=== PATIENT | male | born 1975 | race Caucasian/White ===

== ENCOUNTER 2018-09-02 13:46 | Emergency (ER) | payer MEDICAID ==
[~2018-09-02] VITALS: Ht 182.9 cm; Wt 87.0 kg
[2018-09-02 13:54] VITALS: BP 135/85
== END 2018-09-02 14:03 | disposition home or self-care (01) ==
LOC: ER 13:47
DX: Z02.89 Encounter for other administrative examinations (principal)
CPT/HCPCS: 99281

== ENCOUNTER 2018-10-04 06:16 | Emergency (ER) | payer MEDICAID ==
[~2018-10-04] VITALS: Ht 182.9 cm; Wt 86.4 kg
[2018-10-04 06:25] VITALS: BP 139/92
[2018-10-04] MEDS ORDERED: clindamycin 150mg capsule PO STA (08:59)
[2018-10-04] MEDS ORDERED: CLIN150C2 PO (09:42)
== END 2018-10-04 10:30 | disposition home or self-care (01) ==
LOC: ER 06:17
DX: S00.211A Abrasion of right eyelid and periocular area, initial encounter (principal); L03.211 Cellulitis of face; Y04.2XXA Assault by strike against or bumped into by another person, initial encounter; Y93.89 Activity, other specified; Y92.89 Other specified places as the place of occurrence of the external cause; Y99.8 Other external cause status
CPT/HCPCS: 70140; 99283

== ENCOUNTER 2018-10-14 14:06 | Emergency (ER) | payer MEDICAID ==
[~2018-10-14] VITALS: Ht 182.9 cm; Wt 84.5 kg
[~2018-10-14 14:06] MED LIST: CLIN150C2 PO
[2018-10-14 14:09] VITALS: BP 163/91
[2018-10-14] MEDS ORDERED: ACET-3068 PO (16:16)
== END 2018-10-14 16:32 | disposition home or self-care (01) ==
LOC: ER 14:07
DX: S62.342A Nondisplaced fracture of base of third metacarpal bone, right hand, initial encounter for closed fracture (principal); Z46.89 Encounter for fitting and adjustment of other specified devices; Z76.0 Encounter for issue of repeat prescription; F17.200 Nicotine dependence, unspecified, uncomplicated; Z59.0 Homelessness; V19.88XA Pedal cyclist (driver) (passenger) injured in other specified transport accidents, initial encounter; Y93.55 Activity, bike riding; Y92.413 State road as the place of occurrence of the external cause; Y99.9 Unspecified external cause status
CPT/HCPCS: 73120; 99283